=== PATIENT | female | born 1990 | race African-American/Black ===

== ENCOUNTER 2017-01-12 07:46 | Emergency (ER) | payer MEDICAID ==
[~2017-01-12] VITALS: Ht 170.2 cm; Wt 97.5 kg
[~2017-01-12 07:46] MED LIST: ALBUTEROL SULF8.5 GM INH; AMOXICILLIN500 MG ORAL; AZITHROMYCIN250 MG ORAL; CEPHALEXIN500 MG ORAL; CIPROFLOXACIN500 M2 ORAL; COLACE100 MG ORAL; DEPO-PROVE150 MG/11 IM; DOXYCYCLINE MO100 MG ORAL; GUAIFENESIN-CO118 M1 ORAL; HYDROCORTISONE-30 GM TOPIC; HYDROXYZINE HCL50 M1 PO; IBUPROFEN600 M1 PO; IBUPROFEN600 MG ORAL; KEFLEX500 MG ORAL; MEDROL DOSEPAK4 MG ORAL; METRONIDAZOLE500 MG ORAL; NITROFURANTOIN100 M2 ORAL; NKM; NORCO 5-325 TA1 EACH ORAL; ONDANSETRON ODT4 MG ORAL; PHENAZOPYRIDIN100 MG ORAL; PREDNISONE20 MG ORAL; RANITIDINE HCL150 MG ORAL; REGLAN10 MG ORAL; TRIAMCINOLONE A60 ML TP; TYLENOL325 MG ORAL; ZOFRAN ODT4 MG ORAL
[2017-01-12 08:35] VITALS: BP 85/57
[2017-01-12 09:29] LABS: APPEARANCE,URINE SLIGHTLY CLOUDY; KETONES,URINE NEGATIVE (NEGATIVE); LEUKOCYTE ESTERASE ,URINE 2+ (NEGATIVE); NITRITE,URINE NEGATIVE (NEGATIVE); PH,URINE 6 (4.5-8.0); PROTEIN,URINE NEGATIVE (NEGATIVE); UROBILINOGEN,URINE NORMAL MG/DL (0.0-1.0)
[2017-01-12 09:36] LABS: BACTERIA,URINE MODERATE /HPF; RBC,URINE 0 /HPF (0 - 2); SQUAMOUS EPITHELIAL CELL,UR MANY /LPF (NONE/OCC)
[2017-01-12 09:45] VITALS: BP 99/61
[2017-01-12] MEDS ORDERED: NITROFURANTOIN100 M2 ORAL (09:55)
--- NOTE | 2017-01-12 10:04 | Emergency Room Report ---
History of Present Illness General Chief Complaint: Female Urogenital Problems Source: Patient, Medical Record Present Illness HPI 26YOF with 2-3 days dysuria, suprapubc discomfort. Notes IUD placed Jun recurrent symptoms since. Denies abd pain, nausea/vomiting, fever/chills, flank pain. Feels well otherwise. Denies Abd/pelvic surgery in the past, Allergies: Coded Allergies: No Known Allergies (Unverified , 08/07/14) Patient History Past Medical History: none Past Surgical History: none Pertinent Family History: none Social History: Denies: alcohol use, drug use, smoking Last Menstrual Period: 01/05/17 Now: No Immunizations: UTD Reviewed Nursing Documentation: PMH: Agreed, PSxH: Agreed Nursing Documentation-PMH Hx Hypertension: No Hx Pacemaker: No Hx Asthma: Yes Hx COPD: No Hx Diabetes: No Hx Cancer: No Hx Gastrointestinal Problems: No Hx Dialysis: No Hx Cerebrovascular Accident: No Hx Seizures: No Review of Systems All Other Systems: negative except mentioned in HPI Physical Exam Vital Signs Date Time Temp Pulse Resp B/P Pulse Ox O2 Delivery O2 Flow Rate FiO2 01/12/17 08:12 97.9 81 16 85/57 99 Room Air Sp02 EP Interpretation: reviewed, abnormal, other - Low BP likely in error, wrong cuff said. Patient has no signs of sepsis General Appearance: normal inspection, well appearing, no apparent distress, alert, GCS 15, non-toxic Head: normocephalic, atraumatic Eyes: bilateral eye EOMI, bilateral eye PERRL ENT: normal ENT inspection, hearing grossly normal, normal voice Neck: normal inspection, full range of motion, supple, no bony tend Respiratory: normal inspection, lungs clear, normal breath sounds, no respiratory distress, no retraction, no wheezing Cardiovascular #1: regular rate, rhythm, no edema Gastrointestinal: normal inspection, normal bowel sounds, non tender, soft, no guarding, no hernia Genitourinary: no CVA tenderness Musculoskeletal: normal inspection, back normal, normal range of motion, Topher' s Sign negative Neurologic: normal inspection, alert, oriented x3, responsive, cv tech III-XII nml as tested, motor strength/tone normal, speech normal Psychiatric: normal inspection, judgement/insight normal, mood/affect normal Skin: normal inspection, normal color, no rash Medical Decision Making Diagnostic Impression: Primary Impression: Dysuria Additional Impression: UTI (urinary tract infection) Qualified Codes: N30.00 - Acute cystitis without hematuria ER Course Urine preg negative UTOX positive for cocaine, MJ UA grossly infected Rx Macrobid Advised completing Abx and then followup with H[facility] DOCTOR who placed IUD if continued discomfort. Last Vital Signs Date Time Temp Pulse Resp B/P Pulse Ox O2 Delivery O2 Flow Rate FiO2 01/12/17 08:12 97.9 81 16 85/57 99 Room Air Status: improved Disposition: HOME, SELF-CARE Condition: Improved Scripts Nitrofurantoin Monohyd/M-Cryst* (MACROBID 100 MG*) 100 Mg Capsule 100 MG ORAL EVERY 12 HOURS for 7 Days, #14 CAP Prov: GRIS DING M.D. 01/12/17 Patient Instructions: Urinary Tract Infection Additional Instructions: - Take ALL the antibiotics then followup with RECOVERY ANALYST who placed the IUD if you have continued discomfort GRIS DING M.D. Jan 12, 2017 10:04
== END 2017-01-12 09:45 | disposition home or self-care (01) ==
LOC: EMR 08:20
DX: N30.00 Acute cystitis without hematuria (principal); R30.0 Dysuria; F14.90 Cocaine use, unspecified, uncomplicated; F12.90 Cannabis use, unspecified, uncomplicated
CPT/HCPCS: 80300; 81003; 81025; 87086; 99283

== ENCOUNTER 2017-02-18 14:57 | Emergency (ER) | payer MEDICAID ==
[~2017-02-18] VITALS: Ht 167.6 cm; Wt 94.8 kg
[2017-02-18 15:23] VITALS: BP 107/61
[2017-02-18 15:32] LABS: APPEARANCE,URINE CLEAR; KETONES,URINE NEGATIVE (NEGATIVE); LEUKOCYTE ESTERASE ,URINE NEGATIVE (NEGATIVE); NITRITE,URINE NEGATIVE (NEGATIVE); PH,URINE 6.5 (4.5-8.0); PROTEIN,URINE NEGATIVE (NEGATIVE); UROBILINOGEN,URINE NORMAL MG/DL (0.0-1.0)
[2017-02-18] MEDS ORDERED: FLAGYL500 MG ORAL (15:48)
[2017-02-18] MEDS ORDERED: BACITRACIN15 GM TOPIC (15:48)
[2017-02-18 15:57] VITALS: BP 107/61
[2017-02-18] MEDS ORDERED: VENTOLIN HFA18 GM INH (15:57)
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
== END 2017-02-18 15:57 | disposition home or self-care (01) ==
LOC: EMR 15:25
DX: T20.12XA Burn of first degree of lip(s), initial encounter (principal); X08.8XXA Exposure to other specified smoke, fire and flames, initial encounter; Y92.9 Unspecified place or not applicable; N76.0 Acute vaginitis; J45.909 Unspecified asthma, uncomplicated
CPT/HCPCS: 81003; 99284

== ENCOUNTER 2017-05-08 04:07 | Emergency (ER) | payer MEDICAID ==
[~2017-05-08] VITALS: Ht 167.6 cm; Wt 99.8 kg
[~2017-05-08 04:07] MED LIST changes: +BACITRACIN15 GM TOPIC; +FLAGYL500 MG ORAL; +VENTOLIN HFA18 GM INH
[2017-05-08] MEDS ORDERED: Ipratropium 0.02% Inh Soln 2.5ml UD ONE (04:11)
[2017-05-08] MEDS ORDERED: Albuterol ud Inhalation ONE (04:11)
[2017-05-08] MEDS ORDERED: Ipratropium 0.02% Inh Soln 2.5ml UD HHN ONE (04:15)
[2017-05-08] MEDS ORDERED: Albuterol ud Inhalation HHN ONE (04:15)
[2017-05-08 04:21] VITALS: BP 137/78
[2017-05-08] MEDS ORDERED: PREDNISONE20 MG ORAL (04:32)
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
[2017-05-08 04:45] VITALS: BP 137/78
== END 2017-05-08 04:46 | disposition home or self-care (01) ==
LOC: EMR 04:22
DX: J45.901 Unspecified asthma with (acute) exacerbation (principal); J20.8 Acute bronchitis due to other specified organisms; J06.9 Acute upper respiratory infection, unspecified
CPT/HCPCS: 94640; 94664; 99284

== ENCOUNTER 2017-05-17 08:42 | Emergency (ER) | payer MEDICAID ==
[~2017-05-17] VITALS: Ht 167.6 cm; Wt 99.8 kg
--- NOTE | 2017-05-17 08:59 | Emergency Room Report ---
History of Present Illness General Chief Complaint: Flu Like Symptoms Source: Patient Present Illness HPI Patient presents with complaints of continued cough and congestion She reports her symptoms have been ongoing now for about 2 weeks Denies any vomiting or diarrhea she has underlying asthma as well which has complicated her cough Patient has nasal congestion and runny nose Denies any recent travel denies any pleurisy Denies any other chest pain Allergies: Coded Allergies: No Known Allergies (Unverified , 08/07/14) Patient History Past Medical History: see triage record Pertinent Family History: none Last Menstrual Period: 05/11/17 Now: No : 3 Para: 2 Reviewed Nursing Documentation: PMH: Agreed, PSxH: Agreed Nursing Documentation-PMH Past Medical History: No History, Except For Hx Hypertension: No Hx Pacemaker: No Hx Asthma: Yes Hx COPD: No Hx Diabetes: No Hx Cancer: No Hx Gastrointestinal Problems: No Hx Dialysis: No Hx Cerebrovascular Accident: No Hx Seizures: No Review of Systems All Other Systems: negative except mentioned in HPI Physical Exam Vital Signs Date Time Temp Pulse Resp B/P (MAP) Pulse Ox O2 Delivery O2 Flow Rate FiO2 05/17/17 08:46 98.2 91 18 105/72 96 Room Air Sp02 EP Interpretation: reviewed, normal General Appearance: well appearing, no apparent distress Head: normocephalic, atraumatic Eyes: bilateral eye PERRL, bilateral eye EOMI ENT: hearing grossly normal, normal pharynx, TMs + canals normal, uvula midline Neck: full range of motion, supple, no meningismus, no bony tend Respiratory: no respiratory distress, no retraction, no accessory muscle use, wheezing - Bilateral upper and lower lobes Cardiovascular #1: normal peripheral pulses, regular rate, rhythm, no edema, no gallop, no JVD, no murmur Gastrointestinal: normal bowel sounds, non tender, soft, no mass, no organomegaly, non-distended, no guarding, no hernia, no pulsatile mass, no rebound Genitourinary: no CVA tenderness Musculoskeletal: normal inspection Neurologic: oriented x3, responsive, electronic communications technician III-XII nml as tested, motor strength/ tone normal, sensory intact Psychiatric: mood/affect normal Skin: normal color, no rash, warm/dry, palpation normal Lymphatic: normal inspection, no adenopathy Medical Decision Making Diagnostic Impression: Primary Impression: Pneumonia ER Course Given the patient's history and presentation given the duration of symptoms imaging was obtained did not show any obvious pathology Given the duration of symptoms and the patient's presentation however she is diagnosed with clinical pneumonia Likely community-acquired placed on oral antibiotics and requires close outpatient followup Chest X-Ray Diagnostic Results Chest X-Ray Diagnostic Results : Chest X-Ray Ordered: Yes # of Views/Limited/Complete: 1 View Indication: Chest Pain EP Interpretation: Yes Interpretation: no consolidation, no effusion, no pneumothorax Impression: No acute disease Electronically Signed by: Campos Penaloza DO Last Vital Signs Date Time Temp Pulse Resp B/P (MAP) Pulse Ox O2 Delivery O2 Flow Rate FiO2 05/17/17 08:46 98.2 91 18 105/72 96 Room Air Status: improved Disposition: HOME, SELF-CARE Condition: Improved Scripts Guaifenesin/Codeine Phos* (ROBITUSSIN AC*) 118 Ml Liquid 5 ML ORAL Q6H Y for For Cough for 5 Days, #118 ML 0 Refills Prov: CAMPOS PENALOZA D.O. 05/17/17 Prednisone* (PREDNISONE*) 20 Mg Tablet 20 MG ORAL BID, #8 TAB Prov: CAMPOS PENALOZA D.O. 05/17/17 Azithromycin* (ZITHROMAX*) 250 Mg Tablet 250 MG ORAL DAILY, #6 TAB 0 Refills Take two tables once daily for 1 day, then one tablet once daily for 4 days. Prov: CAMPOS PENALOZA D.O. 05/17/17 Additional Instructions: Patient is provided with the discharge instructions notified to follow up with primary doctor in the next 2-3 days otherwise return to the er with any worsening symptoms. Please note that this report is being documented using [email or web address] technology. This can lead to erroneous entry secondary to incorrect interpretation by the dictating instrument. CAMPOS PENALOZA D.O. May 17, 2017 08:59
[2017-05-17] MEDS ORDERED: Ipratropium 0.02% Inh Soln 2.5ml UD HHN ONE (09:00)
[2017-05-17] MEDS ORDERED: Albuterol ud Inhalation HHN ONE (09:00)
[2017-05-17] MEDS ORDERED: PREDNISONE20 MG ORAL (09:43)
[2017-05-17] MEDS ORDERED: GUAIFENESIN-CO118 M1 ORAL (09:43)
[2017-05-17] MEDS ORDERED: ZITHROMAX250 MG ORAL (09:43)
[2017-05-17 10:00] VITALS: BP 110/74
--- NOTE | 2017-05-17 10:00 | Diagnostic Imaging Report ---
Indication: Dyspnea Comparison: 05/29/16 A single view chest radiograph was obtained. Findings: Cardiomediastinal appearance is within normal limits for age. Pulmonary vascularity is appropriate. The diaphragmatic contour is smooth and costophrenic angles are sharp. No pleural effusions are identified. The bones are unremarkable. Impression: No acute findings
== END 2017-05-17 10:00 | disposition home or self-care (01) ==
LOC: EMR 09:19
DX: J18.9 Pneumonia, unspecified organism (principal); J45.909 Unspecified asthma, uncomplicated
CPT/HCPCS: 71010; 94640; 94664; 99283

== ENCOUNTER 2017-06-19 18:39 | Emergency (ER) | payer MEDICAID ==
[~2017-06-19] VITALS: Ht 167.6 cm; Wt 99.8 kg
[~2017-06-19 18:39] MED LIST changes: +ZITHROMAX250 MG ORAL
[2017-06-19 19:13] LABS: APPEARANCE,URINE SLIGHTLY CLOUDY; KETONES,URINE NEGATIVE (NEGATIVE); LEUKOCYTE ESTERASE ,URINE 1+ (NEGATIVE); NITRITE,URINE POSITIVE (NEGATIVE); PH,URINE 5 (4.5-8.0); PROTEIN,URINE NEGATIVE (NEGATIVE); UROBILINOGEN,URINE 1 MG/DL (0.0-1.0)
[2017-06-19 19:22] LABS: BACTERIA,URINE MANY /HPF; RBC,URINE 0-2 /HPF (0 - 2); SQUAMOUS EPITHELIAL CELL,UR MANY /LPF (NONE/OCC)
[2017-06-19] MEDS ORDERED: VENTOLIN HFA18 GM INH (19:35)
[2017-06-19] MEDS ORDERED: PREDNISONE20 MG ORAL (19:35)
[2017-06-19] MEDS ORDERED: Albuterol/Ipratropium 3ml neb HHN ONE (19:45)
[2017-06-19 20:00] VITALS: BP 124/72
[2017-06-19] MEDS ORDERED: COLACE100 MG ORAL (20:11)
[2017-06-19 20:14] VITALS: BP 124/72
--- NOTE | 2017-06-21 14:53 | Emergency Room Report ---
History of Present Illness General Chief Complaint: General Complaint Source: Patient Present Illness HPI Is a 26-year-old female who presented after increased cough and difficulty breathing. Patient gradual onset of symptoms. Patient for several days. She reported recent increased use of her inhaler. She did not have any fever. She reported increased nasal congestion. She denied any chest pain. Allergies: Coded Allergies: No Known Allergies (Unverified , 08/07/14) Patient History Past Medical History: see triage record, asthma Last Menstrual Period: last month Now: No Reviewed Nursing Documentation: PMH: Agreed, PSxH: Agreed Nursing Documentation-PMH Past Medical History: No History, Except For Hx Hypertension: No Hx Pacemaker: No Hx Asthma: Yes Hx COPD: No Hx Diabetes: No Hx Cancer: No Hx Gastrointestinal Problems: No Hx Dialysis: No Hx Cerebrovascular Accident: No Hx Seizures: No Review of Systems All Other Systems: negative except mentioned in HPI Physical Exam Vital Signs Date Time Temp Pulse Resp B/P (MAP) Pulse Ox O2 Delivery O2 Flow Rate FiO2 06/19/17 18:41 97.9 99 18 120/76 99 Room Air Sp02 EP Interpretation: reviewed, normal General Appearance: normal inspection, well appearing, no apparent distress, alert, GCS 15 Head: atraumatic ENT: normal ENT inspection, hearing grossly normal, normal voice Neck: normal inspection, full range of motion, supple, no bony tend Respiratory: normal inspection, normal breath sounds, no retraction, wheezing Cardiovascular #1: regular rate, rhythm, no edema Gastrointestinal: normal inspection, normal bowel sounds, non tender, soft, no guarding, no hernia Genitourinary: no CVA tenderness Musculoskeletal: normal inspection, back normal, normal range of motion Neurologic: normal inspection, alert, oriented x3, responsive, grinder brake lining III-XII nml as tested, speech normal Psychiatric: normal inspection, judgement/insight normal, mood/affect normal Skin: normal inspection, normal color, no rash Medical Decision Making Diagnostic Impression: Primary Impression: Asthma ER Course The patient presented for cough and difficulty breathing. Difficult differential diagnosis included bronchitis, pneumonia, asthma, foreign body, pertussis among others. The patient was given breathing treatment with with improvement in respiratory status. Patient given oral prednisone. A repeat exam showed diminished wheezing. Patient was advised followup with primary care physician for reevaluation one to 2 days. Patient was to return for increased productive cough, hemoptysis, increased difficulty breathing or other concerns Last Vital Signs Date Time Temp Pulse Resp B/P (MAP) Pulse Ox O2 Delivery O2 Flow Rate FiO2 06/19/17 20:14 97.9 84 17 124/72 100 Room Air Status: improved Disposition: HOME, SELF-CARE Condition: Improved Scripts Docusate Sodium* (COLACE*) 100 Mg Capsule 100 MG ORAL THREE TIMES A DAY, #30 CAP Prov: Dionte Lora 06/19/17 Prednisone* (PREDNISONE*) 20 Mg Tablet 40 MG ORAL DAILY, #10 TAB Prov: Dionte Lora 06/19/17 Albuterol Sulfate (VENTOLIN HFA) 18 Gm Hfa.aer.ad 2 PUFFS INH EVERY 6 HOURS, #18 GM 0 Refills Prov: Dionte Lora 06/19/17 Referrals: [facility],REFERRING (PCP) Patient Instructions: Asthma, Adult Dionte Lora Jun 21, 2017 14:53
== END 2017-06-19 20:14 | disposition home or self-care (01) ==
LOC: EMR 19:18
DX: J45.909 Unspecified asthma, uncomplicated (principal)
CPT/HCPCS: 81003; 81025; 87086; 87181; 99283

== ENCOUNTER 2019-10-05 10:23 | Emergency (ER) | payer MEDICAID ==
[~2019-10-05] VITALS: Ht 167.6 cm; Wt 126.1 kg
--- NOTE | 2019-10-05 10:37 | NUR ---
ED Nurse Note: Pt walked into ED w/ c/o cough, sneezing, sore throat, nausea for 3 days. Pt has hx of asthma. Pt denies vomiting. Pt lungs has expiratory wheezing bilaterally. Pt is alert and orientedx4, ambulatory. MD has seen patient. t has pain 7/10 throat.
[2019-10-05 10:41] VITALS: BP 104/76
[2019-10-05] MEDS ORDERED: Albuterol/Ipratropium 3ml neb HHN ONE ×2 (10:45→11:15)
[2019-10-05] MEDS ORDERED: PREDNISONE20 MG ORAL (10:47)
[2019-10-05] MEDS ORDERED: ALBUTEROL SULF8.5 GM INH (10:49)
[2019-10-05] MEDS ORDERED: AMOXICILLIN500 MG ORAL (10:49)
--- NOTE | 2019-10-05 10:54 | Emergency Room Report ---
History of Present Illness General Chief Complaint: Flu Like Symptoms Source: Patient Present Illness HPI Disclaimer: Please note that this report is being documented using 4th aspectON technology. This can lead to erroneous entry secondary to incorrect interpretation by the dictating instrument. HPI: 28-year-old female presents for evaluation of sore throat, cough. Symptoms present 2 to 3 days. Started with sore throat and worsening nonproductive cough over the past 3 days. Reports subjective fevers and chills. Reports fatigue and decreased appetite. Denies nausea or vomiting. Denies diarrhea or abdominal pain or cramping. Denies dysuria hematuria. She does report some nasal congestion and rhinorrhea. Did not receive a flu shot this year. Has been using Tamiflu and DayQuil. Use the rescue inhaler but does not use steroid inhalers. No recent asthma exacerbations. Does not have a PMD at this time. PMH: Asthma PSH: Denies Allergies: Denies Allergies: Coded Allergies: No Known Allergies (Unverified , 08/07/14) Patient History Last Menstrual Period: irregular Now: No Nursing Documentation-PMH Past Medical History: No History, Except For Hx Hypertension: No Hx Pacemaker: No Hx Asthma: Yes Hx COPD: No Hx Diabetes: No Hx Cancer: No Hx Gastrointestinal Problems: No Hx Dialysis: No Hx Cerebrovascular Accident: No Hx Seizures: No Review of Systems All Other Systems: negative except mentioned in HPI Physical Exam Vital Signs Date Time Temp Pulse Resp B/P (MAP) Pulse Ox O2 Delivery O2 Flow Rate FiO2 10/05/19 10:29 98.1 87 17 101/73 (82) 94 Room Air 10/05/19 10:41 96 General: Awake and alert, no acute distress HEENT: NC/AT. EOMI. uvula is midline. Pharynx is erythematous with some mild exudates. Tonsils are 3+ but not obstructing. They are edematous and erythematous with overlying exudate as well. Airway is patent. Neck: Supple, trachea midline. Tender bilateral anterior lymphadenopathy Cardiovascular: RRR. S1 and S2 normal. No murmur appreciated Resp: Normal work of breathing. Intermittent nonproductive cough throughout the exam. Expiratory wheezes heard at the bases bilaterally. No crackles appreciated. Abdomen: Abdomen is soft, nondistended. Nontender Skin: Intact. No abrasions, laceration or rash over the exposed skin MSK: Normal tone and bulk. Moving all extremities. No obvious deformity. Neuro: Awake and alert. Mentating appropriately. Medical Decision Making Diagnostic Impression: Primary Impression: Asthma exacerbation Additional Impressions: URI (upper respiratory infection) Bronchitis Pharyngitis ER Course This a 28-year-old female presenting for the evaluation of 3 days URI symptoms as well as nonproductive cough and wheezing. Differential includes was not limited to viral syndrome, influenza, pneumonia, bronchitis, eczema exacerbation , pharyngitis, tonsillitis, sinusitis to name a few. Overall, she is well- appearing and afebrile though she does have some tonsillar and pharyngeal edema and exudate. She also has a more viral-like appearance. Likely this is a viral syndrome exacerbating her asthma. She will require some breathing treatments and will start prednisone for 5 days. Additionally, we will likely start antibiotics for bronchitis given her risk factors and poor follow-up. Chest X-Ray Diagnostic Results Chest X-Ray Diagnostic Results : Chest X-Ray Ordered: Yes # of Views/Limited/Complete: 1 View Indication: Shortness of Breath EP Interpretation: Yes Interpretation: no consolidation, no effusion, no pneumothorax, no acute cardiopulmonary disease Impression: No acute disease Electronically Signed by: Electronically signed by Dr. Wei Bustos Reevaluation Time: 11:45 Last Vital Signs Date Time Temp Pulse Resp B/P (MAP) Pulse Ox O2 Delivery O2 Flow Rate FiO2 10/05/19 10:41 84 19 Room Air 96 10/05/19 10:41 98.1 104/76 96 Reevaluation Impression No obvious infiltrate or other findings on chest x-ray. Improved after breathing treatments. The patient be discharged with steroids, antibiotics and cough medication. Follow-up on an outpatient basis. Discussed reasons to return to the emergency department. She understands and agrees with this treatment plan. Disposition: HOME, SELF-CARE Condition: Stable Scripts Guaifenesin/Codeine Phos* (ROBITUSSIN AC*) 118 Ml Liquid 5 ML ORAL Q6H PRN for For Cough for 5 Days, #118 ML 0 Refills Prov: Wei Bustos MD 10/05/19 Amoxicillin* (AMOXIL*) 500 Mg Capsule 500 MG ORAL BID for 7 Days, #14 CAP Prov: Wei Bustos MD 10/05/19 Albuterol Sulfate* (ALBUTEROL SULFATE MDI*) 8.5 Gm Hfa.aer.ad 2 PUFF INH Q3H, #1 INH 0 Refills Prov: Wei Bustos MD 10/05/19 Prednisone* (PREDNISONE*) 20 Mg Tablet 40 MG ORAL DAILY, #10 TAB Prov: Wei Bustos MD 10/05/19 Referrals: [facility] Patient Instructions: Acute Bronchitis Additional Instructions: You will be started antibiotics for treatment of the bronchitis and possible pharyngitis. We will also start prednisone for 5 days to treat an asthma exacerbation likely from this recent illness. Please contact 1 of the clinics listed here to establish yourself as a new patient if more regular follow-up given your asthma. Follow-up within the next week for reevaluation of your current symptoms. Return to the emergency department any new or worsening symptoms. Wei Bustos MD Oct 05, 2019 10:54
[2019-10-05] MEDS ORDERED: GUAIFENESIN-CO118 M1 ORAL (11:06)
--- NOTE | 2019-10-05 11:56 | NUR ---
ER DISCHARGE NOTE: Patient is cleared to be discharged per ERMD, pt is aox4, on room air, with stable vital signs. pt was given dc and prescription instructions, pt was able to verbalize understanding, pt id band removed. pt is able to ambulate with steady gait. pt took all belongings.
--- NOTE | 2019-10-05 11:56 | Diagnostic Imaging Report ---
Indication: Cough Technique: One view of the chest Comparison: 05/17/2017 Findings: Suboptimal inspiration. Lungs and pleural spaces are clear. The heart size is upper limits of normal Impression: No acute process
[2019-10-05 11:57] VITALS: BP 104/76
== END 2019-10-05 11:58 | disposition home or self-care (01) ==
LOC: EMR 10:47
DX: J45.901 Unspecified asthma with (acute) exacerbation (principal); J20.9 Acute bronchitis, unspecified; J02.9 Acute pharyngitis, unspecified; J06.9 Acute upper respiratory infection, unspecified
CPT/HCPCS: 71045; Z7502; 99284; J7620

== ENCOUNTER 2019-10-08 17:59 | Inpatient (IN) | payer MEDICAID ==
[~2019-10-08] VITALS: Ht 167.6 cm; Wt 103.4 kg
--- NOTE | 2019-10-08 18:15 | NUR ---
ED Nurse Note: Pt from home walked in due to flu like symptoms of fever, bodyaches, coughing, sore throat, decreased urine output and lower back pain x 1 week. Pt was seen by doctor 3 days ago. Temp in triage 102 F and pt took ibuprofen before going to ED. AAO x4, ambulatory with non labored breathing.
[2019-10-08 18:30] VITALS: BP 99/58
[2019-10-08] MEDS ORDERED: Acetaminophen 500mg (ES) tab ORAL ONE ×2 (18:30→19:03)
--- NOTE | 2019-10-08 18:57 | NUR ---
ED Nurse Note: Collected blood/urine and flu swab sent.
[2019-10-08] MEDS ORDERED: Sodium Chloride 3,100 ML IVLG ONE (19:00)
[2019-10-08] MEDS ORDERED: Albuterol ud Inhalation HHN ONE (19:00)
[2019-10-08 19:12] LABS: APPEARANCE,URINE SLIGHTLY CLOUDY; BILIRUBIN, URINE NEGATIVE (NEGATIVE); COLOR,URINE AMBER; GLUCOSE, URINE (UA) NEGATIVE (NEGATIVE); KETONES,URINE 3+ (NEGATIVE); LEUKOCYTE ESTERASE ,URINE 3+ (NEGATIVE); NITRITE,URINE NEGATIVE (NEGATIVE); PH,URINE 5 (4.5-8.0); PROTEIN,URINE 1+ (NEGATIVE); UROBILINOGEN,URINE 1 MG/DL (0.0-1.0)
[2019-10-08] MEDS ORDERED: Albuterol ud Inhalation ONE (19:18)
[2019-10-08 19:21] LABS: BASOPHILS % (AUTO) 1.6 % (0.0-2.0); EOSINOPHILS % (AUTO) 0.1 % (0.0-3.0); HEMATOCRIT 40.7 % (37.0-47.0); HEMOGLOBIN 13.3 G/DL (12.0-16.0); MEAN CORPUSCULAR VOLUME 83 FL (80-99); MONOCYTES % (AUTO) 8.4 % (1.0-10.0); NEUTROPHILS % (AUTO) 68.9 % (45.0-75.0); PLATELET COUNT 234 K/UL (150-450); RED BLOOD COUNT 4.91 M/UL (4.20-5.40); RED CELL DISTRIBUTION WIDTH 14.2 % (11.6-14.8); WHITE BLOOD COUNT 6.6 K/UL (4.8-10.8)
--- NOTE | 2019-10-08 19:26 | NUR ---
HAND-OFF: Report given to deisy MONROY.
[2019-10-08] MEDS ORDERED: Gadavist 7.5mMol/7.5ml vial IV PRN (19:30)
[2019-10-08 19:40] LABS: ANION GAP 13 mmol/L (5-15); BLOOD UREA NITROGEN 13 mg/dL (7-18); CALCIUM 9.3 MG/DL (8.5-10.1); CARBON DIOXIDE 25 MMOL/L (21-32); CHLORIDE 102 MMOL/L (98-107); CREATININE 1.2 MG/DL (0.55-1.30); POTASSIUM 4.1 MMOL/L (3.5-5.1); SODIUM 140 MMOL/L (136-145)
[2019-10-08 19:46] LABS: ALANINE AMINOTRANSFERASE 19 U/L (12-78); ALBUMIN 3.7 G/DL (3.4-5.0); ALBUMIN/GLOBULIN RATIO 0.7 (1.0-2.7); ALKALINE PHOSPHATASE 99 U/L (46-116); ASPARTATE AMINO TRANSFERASE 16 U/L (15-37); BILIRUBIN,TOTAL 0.5 MG/DL (0.2-1.0)
--- NOTE | 2019-10-08 19:50 | NUR ---
ED Nurse Note: sujata went with radiology administrator for MRI. Will monitor for return.
--- NOTE | 2019-10-08 20:50 | NUR ---
ED Nurse Note: Patient awake and relaxed with at bedside. Patient tolerating fluids and medication well. Will continue to monitor.
--- NOTE | 2019-10-08 21:54 | NUR ---
ED Nurse Note: Ptient belongings sheet completed, $20.00 and 3- visas noted and signed for.
--- NOTE | 2019-10-08 22:05 | NUR ---
ED Nurse Note: Report called in to Sonia MONROY.
[2019-10-08 22:20] VITALS: BP 99/58
--- NOTE | 2019-10-08 22:20 | NUR ---
ED Nurse Note: Patient transported to floor without incident. Addendum: 10/09/19 at 0023 by TONY ED Nurse Note: Nakia georges verfied upon arrival to floor.
--- NOTE | 2019-10-08 22:29 | Emergency Room Report ---
History of Present Illness General Chief Complaint: General Complaint Source: Patient Present Illness HPI This patient states that for the past 5 days that she has had sore throat, body aches and painful swallowing. She is also had a cough and some shortness of breath. She does have a history of asthma. She states that she noted that her tonsils were swollen and white. She complains of low back pain. She denies abdominal pain. She denies dysuria or hematuria. She denies travel out of the country. She has no other complaints. Allergies: Coded Allergies: No Known Allergies (Unverified , 08/07/14) Patient History Past Medical History: see triage record, asthma, other - Hyperthyroid Social History: Denies: smoking, alcohol use, drug use Last Menstrual Period: Aug, 2019 Now: No Reviewed Nursing Documentation: PMH: Agreed; PSxH: Agreed Nursing Documentation-PMH Past Medical History: No History, Except For Hx Hypertension: No Hx Pacemaker: No Hx Asthma: Yes Hx COPD: No Hx Diabetes: No Hx Cancer: No Hx Gastrointestinal Problems: No Hx Dialysis: No Hx Cerebrovascular Accident: No Hx Seizures: No Review of Systems All Other Systems: negative except mentioned in HPI Physical Exam Vital Signs Date Time Temp Pulse Resp B/P (MAP) Pulse Ox O2 Delivery O2 Flow Rate FiO2 10/08/19 18:05 102.0 111 19 116/70 (85) 96 Room Air 10/08/19 19:24 21 Sp02 EP Interpretation: reviewed, normal General Appearance: no apparent distress, alert, GCS 15, non-toxic Head: normocephalic, atraumatic Eyes: bilateral eye normal inspection, bilateral eye PERRL ENT: hearing grossly normal, no angioedema, normal voice, uvula midline, moist mucus membranes, tonsillar swelling, tonsillar exudate Neck: full range of motion, supple/symm/no masses Respiratory: chest non-tender, speaking full sentences, wheezing, expiration Cardiovascular #1: no edema, tachycardia Gastrointestinal: normal bowel sounds, non tender, soft, non-distended, no guarding, no rebound Rectal: deferred Musculoskeletal: back normal, normal range of motion, non-tender Neurologic: alert, motor strength/tone normal, oriented x3, sensory intact, responsive, speech normal Psychiatric: judgement/insight normal, memory normal, mood/affect normal, no suicidal/homicidal ideation Skin: no rash, normal color Medical Decision Making Diagnostic Impression: Primary Impression: Asthma exacerbation Additional Impressions: Strep tonsillitis Fever Wheezing UTI (urinary tract infection) ER Course This patient has an asthma exacerbation. She also has findings on exam consistent with streptococcal tonsillitis. She is a fever of 102 and a urinary tract infection. The patient appears miserable and is having difficulty tolerating fluids or anything orally. She was given IV fluids, IV antibiotics and breathing treatments and will be admitted for further pulmonary hygiene, hydration and further monitoring and treatment. I had planned on obtaining an MRI of the lumbar spine because this patient complained of low back pain and some numbness in her right thigh. However, the patient did go to MRI and was unable to tolerate it. She adamantly declined MRI. I offered the patient sedation for the MRI and she adamantly refused. Laboratory Tests Test 10/08/19 18:40 White Blood Count 6.6 K/UL (4.8-10.8) Red Blood Count 4.91 M/UL (4.20-5.40) Hemoglobin 13.3 G/DL (12.0-16.0) Hematocrit 40.7 % (37.0-47.0) Mean Corpuscular Volume 83 FL (80-99) Mean Corpuscular Hemoglobin 27.1 PG (27.0-31.0) Mean Corpuscular Hemoglobin Concent 32.7 G/DL (32.0-36.0) Red Cell Distribution Width 14.2 % (11.6-14.8) Platelet Count 234 K/UL (150-450) Mean Platelet Volume 9.4 FL (6.5-10.1) Neutrophils (%) (Auto) 68.9 % (45.0-75.0) Lymphocytes (%) (Auto) 21.0 % (20.0-45.0) Monocytes (%) (Auto) 8.4 % (1.0-10.0) Eosinophils (%) (Auto) 0.1 % (0.0-3.0) Basophils (%) (Auto) 1.6 % (0.0-2.0) Urine Color [place] Urine Appearance Slightly cloudy Urine pH 5 (4.5-8.0) Urine Specific [place] 1.020 (1.005-1.035) Urine Protein 1+ (NEGATIVE) H Urine Glucose (UA) Negative (NEGATIVE) Urine Ketones 3+ (NEGATIVE) H Urine Blood 2+ (NEGATIVE) H Urine Nitrite Negative (NEGATIVE) Urine Bilirubin Negative (NEGATIVE) Urine Ictotest Negative (NEGATIVE) Urine Urobilinogen 1 MG/DL (0.0-1.0) H Urine Leukocyte Esterase 3+ (NEGATIVE) H Urine RBC 2-4 /HPF (0 - 2) H Urine WBC 15-20 /HPF (0 - 2) H Urine Squamous Epithelial Cells Many /LPF (NONE/OCC) H Urine Bacteria Moderate /HPF (NONE) H Urine HCG, Qualitative Negative (NEGATIVE) Sodium Level 140 MMOL/L (136-145) Potassium Level 4.1 MMOL/L (3.5-5.1) Chloride Level 102 MMOL/L (98-107) Carbon Dioxide Level 25 MMOL/L (21-32) Anion Gap 13 mmol/L (5-15) Blood Urea Nitrogen 13 mg/dL (7-18) Creatinine 1.2 MG/DL (0.55-1.30) Estimate Glomerular Filtration Rate > 60 mL/min (>60) Glucose Level 98 MG/DL (74-106) Lactic Acid Level 0.90 mmol/L (0.4-2.0) Calcium Level 9.3 MG/DL (8.5-10.1) Total Bilirubin 0.5 MG/DL (0.2-1.0) Aspartate Amino Transferase (AST) 16 U/L (15-37) Alanine Aminotransferase (ALT) 19 U/L (12-78) Alkaline Phosphatase 99 U/L (46-116) Total Protein 8.8 G/DL (6.4-8.2) H Albumin 3.7 G/DL (3.4-5.0) Globulin 5.1 g/dL Albumin/Globulin Ratio 0.7 (1.0-2.7) L Thyroid Stimulating Hormone (TSH) 0.190 uiU/mL (0.358-3.740) Free Thyroxine 1.75 NG/DL (0.76-1.46) H Microbiology Date/Time Source Procedure Growth Status 10/08/19 18:40 Nasal Nares - Final Complete 10/08/19 18:40 Nasal Nares - Final Complete EKG Diagnostic Results Rate: tachycardiac Rhythm: other - S.tachycardia ST Segments: no acute changes Rhythm Strip Diag. Results EP Interpretation: yes Rate: 100's Rhythm: no PVC's, no ectopy, other - S.tachycardia Last Vital Signs Date Time Temp Pulse Resp B/P (MAP) Pulse Ox O2 Delivery O2 Flow Rate FiO2 10/08/19 19:55 103.1 10/08/19 19:24 104 21 100 Room Air 21 100 18 100 10/08/19 18:30 99/58 Disposition: ADMITTED INPATIENT Condition: Serious Referrals: NOT CHOSEN [facility]/,REFERRING (PCP) Jena Hernandez DO Oct 08, 2019 22:29
--- NOTE | 2019-10-08 22:35 | NUR ---
NURSE NOTES: Patient arrived to the unit @2230 via gurney accompanied by the ED RN and the avionics test technician. Patient is alert, awake, and responsive. Breathing regular and unlabored with no s/s of SOB noted at this time. Patient remains on RA with saturation of 98%, vitals within normal limits, afebrile. Patient is c/o some lower back and sore throat pain. IV access on the LAC, 20G, patent, intact, and running fluids from ED at this time. Placed patient on a manager cardiac cath, showing sinus rhythm. Reviewed belongings list with the patient and the transferring RN. Noted patient has few credit cards and $20 in [place]. Belongings remained with patient. Patient's is at bedside and will stay the night. Oriented patient to room, patient is able to make needs known. Patient is able to ambulate without assist, steady gait. Bed remains in lowest position, breaks engaged, and call light is within reach at all times. Contacted primary MD for admitting orders, awaiting response. All other needs attended to, patient remains stable, will continue to monitor.
--- NOTE | 2019-10-08 23:40 | NUR ---
NURSE NOTES: Noted patient screaming out of no where, two RN's attended to patient's room and noted patient crying and screaming. Patient's had left and it appeared that she was very upset. Patient stated "Unplug me right now, right now." Patient was very eager to leave. Explained to the patient the risks and benefits of her decision, but patient was persistent on leaving. Informed the CN Feli about the patient's decision. The CN spoke to the patient as well and explained all the risks and benefits, but patient still refused. Patient agreed to sign AMA. Removed patient's IV, removed the lunchroom monitor. All belongings taken taken with the patient. Escorted patient down, patient left at 2340. Informed primary MD.
--- NOTE | 2019-10-12 07:31 | Discharge Summary ---
Discharge Summary Discharge Summary _ DATE OF ADMISSION: 10/08/2019 DATE OF DISCHARGE: 10/08/2019 Patient left AGAINST MEDICAL ADVICE REASON FOR ADMISSION: 28 years old female with past medical history of asthma ,presented to emergency department complaining of sore throat , body aches and painful swallowing. Patient reported cough and mild shortness of breath. She also complained of low back pain. No abdominal pain. No dysuria or hematuria. She denied traveling outside of the country. Symptoms started about 5 days ago. Upon evaluation patient was febrile with temperature 102, tachycardic with heart rate 111. Pulse oximetry was stable on room air. Laboratory work-up revealed no leukocytosis, stable hemoglobin, hematocrit and platelet count. Stable electrolytes and renal parameters. Lactic acid 0.9. Urinalysis revealed evidence of probable urinary tract infection with pyuria, moderate bacteria, +3 leukocyte esterase. Urine test was negative. Influenza test was negative. Clinical examination revealed swollen tonsils with tonsillar exudate. In emergency department patient started on the IV fluids, empiric antibiotics and nebulizing treatment with bronchodilator. Patient admitted for further IV hydration antibiotic and supportive care. HOSPITAL COURSE: Patient admitted to the floor . Pulse oximetry was stable on room air. Nebulizing treatment with bronchodilator provided as needed. Telemetry showed sinus rhythm. Patient started on IV fluids. Shortly after arriving to the floor patient decided to leave AGAINST MEDICAL ADVICE. The risks and consequences of signing AGAINST MEDICAL ADVICE were discussed with patient in detail. Patient verbalized understanding, nevertheless signed AMA form and left. At the time of this dictation blood culture results back and negative up to date. and urine culture revealed staph coagulase negative with colony count less than 10K. FINAL DIAGNOSES: Fever Possible streptococcal tonsillitis Possible UTI Asthma with possible exacerbation I have been assigned to dictate discharge summary for this account. I was not involved in the patient's management. Tiffanie Valencia NP Oct 12, 2019 07:31
== END 2019-10-08 23:45 | disposition left against medical advice (07) | DRG 141 ==
LOC: EMR 18:25 → 2E 19:40 → EDBEDREQ 21:10
DX: J45.901 Unspecified asthma with (acute) exacerbation (principal); J03.00 Acute streptococcal tonsillitis, unspecified; N39.0 Urinary tract infection, site not specified
CPT/HCPCS: 36415; 80053; 81003; 81025; 83605; 84439; 84443; 85025; 86710; 87040; 87086; 93005; 96360; 99285; J7030

== ENCOUNTER → 2020-02-29 | Emergency (ER) | payer MEDICAID, OTHER ==
[~2020-02-29] VITALS: Ht 167.6 cm; Wt 111.1 kg
[~2020-02-29] MED LIST changes: +CEPHALEXIN500 M1 ORAL; +FAMOTIDINE20 MG ORAL; +ONDANSETRON ODT4 MG BC
[2020-02-29 01:30] VITALS: BP 102/71
[2020-02-29 01:51] LABS: EOSINOPHILS % (AUTO) 1.2 % (0.0-3.0); HEMATOCRIT 44.9 % (37.0-47.0); HEMOGLOBIN 14.7 G/DL (12.0-16.0); LYMPHOCYTES % (AUTO) 38.1 % (20.0-45.0); MEAN CORPUSCULAR VOLUME 88 FL (80-99); MONOCYTES % (AUTO) 7.3 % (1.0-10.0); NEUTROPHILS % (AUTO) 51.4 % (45.0-75.0); PLATELET COUNT 299 K/UL (150-450); RED BLOOD COUNT 5.09 M/UL (4.20-5.40); RED CELL DISTRIBUTION WIDTH 13.2 % (11.6-14.8); WHITE BLOOD COUNT 7.2 K/UL (4.8-10.8)
[2020-02-29 01:55] LABS: ANION GAP 9 mmol/L (5-15); BLOOD UREA NITROGEN 10 mg/dL (7-18); CARBON DIOXIDE 28 MMOL/L (21-32); CHLORIDE 103 MMOL/L (98-107); POTASSIUM 3.6 MMOL/L (3.5-5.1); SODIUM 140 MMOL/L (136-145)
[2020-02-29 02:00] LABS: ALANINE AMINOTRANSFERASE 18 U/L (12-78); ALBUMIN 3.9 G/DL (3.4-5.0); ALBUMIN/GLOBULIN RATIO 0.8 (1.0-2.7); ALKALINE PHOSPHATASE 112 U/L (46-116); ASPARTATE AMINO TRANSFERASE 17 U/L (15-37); BILIRUBIN,TOTAL 0.2 MG/DL (0.2-1.0)
[2020-02-29 02:44] VITALS: BP 124/78
--- NOTE | 2020-02-29 03:04 | Emergency Room Report ---
History of Present Illness General Chief Complaint: Vomiting Source: Patient Present Illness HPI 29-year-old female presents ED with abdominal pain and vomiting. Started a few hours ago. States that she was drinking beer and some hard alcohol after which the vomiting started. Noticed blood in her vomit. Pain is epigastric, burning , 8 out of 10, nonradiating. Denies chest pain or shortness of breath. Denies fevers or chills. Denies diarrhea. Does admit to marijuana use. No other aggravating relieving factors. Denies any other associated symptoms Allergies: Coded Allergies: No Known Allergies (Unverified , 08/07/14) COVID-19 Screening Contact w/high risk pt: No Experienced COVID-19 symptoms?: No COVID-19 Testing performed REGISTERED NURSE BEHAVIORAL HEALTH: No Patient History Past Medical History: DM, asthma Past Surgical History: none Pertinent Family History: none Social History: Denies: smoking, alcohol use, drug use Last Menstrual Period: current Now: No Immunizations: UTD Reviewed Nursing Documentation: PMH: Agreed; PSxH: Agreed Nursing Documentation-PMH Hx Hypertension: No Hx Pacemaker: No Hx Asthma: Yes Hx COPD: No Hx Diabetes: Yes Hx Cancer: No Hx Gastrointestinal Problems: No - gerd Hx Dialysis: No Hx Cerebrovascular Accident: No Hx Seizures: No Review of Systems All Other Systems: negative except mentioned in HPI Physical Exam Vital Signs Date Time Temp Pulse Resp B/P (MAP) Pulse Ox O2 Delivery O2 Flow Rate FiO2 02/29/20 01:16 98.2 97 16 102/71 (81) 97 Room Air Sp02 EP Interpretation: reviewed, normal General Appearance: no apparent distress, alert, GCS 15, non-toxic Head: normocephalic, atraumatic Eyes: bilateral eye normal inspection, bilateral eye PERRL ENT: hearing grossly normal, normal pharynx, no angioedema, normal voice Neck: full range of motion, supple/symm/no masses Respiratory: chest non-tender, lungs clear, normal breath sounds, speaking full sentences Cardiovascular #1: regular rate, rhythm, no edema Cardiovascular #2: 2+ carotid (R), 2+ carotid (L), 2+ radial (R), 2+ radial (L) , 2+ dorsalis pedis (R), 2+ dorsalis pedis (L) Gastrointestinal: normal bowel sounds, soft, non-distended, no guarding, no rebound, tenderness Rectal: deferred Genitourinary: normal inspection, no CVA tenderness Musculoskeletal: back normal, normal range of motion, gait/station normal, non- tender Neurologic: alert, motor strength/tone normal, oriented x3, sensory intact, responsive, speech normal Psychiatric: judgement/insight normal, memory normal, mood/affect normal, no suicidal/homicidal ideation Reflexes: 3+ bicep (R), 3+ bicep (L), 3+ tricep (R), 3+ tricep (L), 3+ knee (R) , 3+ knee (L) Lymphatic: no adenopathy Medical Decision Making Diagnostic Impression: Primary Impression: Gastritis Qualified Codes: K29.21 - Alcoholic gastritis with bleeding ER Course Hospital Course 29 yo F presents c/o abdominal pain with vomiting differential diagnosis: gastritis, SBO, cholecystits Clinical course Patient placed on stretcher. On child monitor. After initial history and physical I ordered labs, IV fluids, Zofran and pepcid Labs - no leukocytosis, no electrolyte abnormalities, LFTs normal, Upon reassessment, patient states she feels better. Discussed findings with patient. Safe for discharge and close outpatient follow-up. I feel this is a highly complex case requiring extensive working including EKG/ Rhythm strip, Xray/CT/US, Blood/urine lab work, repeat exams while in ED, and administration of strong opiates/narcotics for pain control, admission to hospital or close patient follow up. Diagnosis - gastritis Stable and discharged to home with prescriptions for pepcid and zofran. Followup with PMD. Return to ED if symptoms recur or worsen Laboratory Tests Test 02/29/20 01:40 White Blood Count 7.2 K/UL (4.8-10.8) Red Blood Count 5.09 M/UL (4.20-5.40) Hemoglobin 14.7 G/DL (12.0-16.0) Hematocrit 44.9 % (37.0-47.0) Mean Corpuscular Volume 88 FL (80-99) Mean Corpuscular Hemoglobin 28.8 PG (27.0-31.0) Mean Corpuscular Hemoglobin Concent 32.6 G/DL (32.0-36.0) Red Cell Distribution Width 13.2 % (11.6-14.8) Platelet Count 299 K/UL (150-450) Mean Platelet Volume 8.0 FL (6.5-10.1) Neutrophils (%) (Auto) 51.4 % (45.0-75.0) Lymphocytes (%) (Auto) 38.1 % (20.0-45.0) Monocytes (%) (Auto) 7.3 % (1.0-10.0) Eosinophils (%) (Auto) 1.2 % (0.0-3.0) Basophils (%) (Auto) 2.0 % (0.0-2.0) Sodium Level 140 MMOL/L (136-145) Potassium Level 3.6 MMOL/L (3.5-5.1) Chloride Level 103 MMOL/L (98-107) Carbon Dioxide Level 28 MMOL/L (21-32) Anion Gap 9 mmol/L (5-15) Blood Urea Nitrogen 10 mg/dL (7-18) Creatinine 1.0 MG/DL (0.55-1.30) Estimat Glomerular Filtration Rate > 60 mL/min (>60) Glucose Level 114 MG/DL (74-106) H Calcium Level 9.0 MG/DL (8.5-10.1) Total Bilirubin 0.2 MG/DL (0.2-1.0) Aspartate Amino Transf (AST/SGOT) 17 U/L (15-37) Alanine Aminotransferase (ALT/SGPT) 18 U/L (12-78) Alkaline Phosphatase 112 U/L (46-116) Total Protein 8.5 G/DL (6.4-8.2) H Albumin 3.9 G/DL (3.4-5.0) Globulin 4.6 g/dL Albumin/Globulin Ratio 0.8 (1.0-2.7) L Lipase 139 U/L (73-393) Last Vital Signs Date Time Temp Pulse Resp B/P (MAP) Pulse Ox O2 Delivery O2 Flow Rate FiO2 02/29/20 02:44 99.0 82 18 124/78 98 Room Air Status: improved Disposition: HOME, SELF-CARE Condition: Stable Scripts Ondansetron Odt* (ZOFRAN ODT*) 4 Mg Tab.rapdis 4 MG BC EVERY 6 HOURS PRN for Nausea & Vomiting, #20 TAB 0 Refills Prov: Maurice Porter MD 02/29/20 Famotidine* (Pepcid 20mg tablet*) 20 Mg Tablet 20 MG ORAL DAILY, #30 TAB 0 Refills Prov: Maurice Porter MD 02/29/20 Referrals: [facility]ERR[facility] (PCP) Patient Instructions: Gastritis, Adult, [id number] Maurice Potrer MD Feb 29, 2020 03:04
== END | disposition home or self-care (01) ==
LOC: EMR 01:31
DX: K29.21 Alcoholic gastritis with bleeding (principal); K21.9 Gastro-esophageal reflux disease without esophagitis; E11.9 Type 2 diabetes mellitus without complications
CPT/HCPCS: 36415; 80053; 83690; 85025; 96361; 96374; 96375; J2405; J7030; S0028; Z7502; 99284

== ENCOUNTER 2020-03-01 05:12 | Emergency (ER) | payer OTHER ==
[~2020-03-01] VITALS: Ht 170.2 cm; Wt 111.6 kg
[~2020-03-01 05:12] MED LIST changes: -CEPHALEXIN500 M1 ORAL
[2020-03-01 05:20] VITALS: BP 126/80
[2020-03-01] MEDS ORDERED: Ketorolac 30mg Inj IV ONE (05:45)
[2020-03-01 05:53] LABS: BASOPHILS % (AUTO) 1.7 % (0.0-2.0); EOSINOPHILS % (AUTO) 0.9 % (0.0-3.0); HEMATOCRIT 45.6 % (37.0-47.0); HEMOGLOBIN 14.8 G/DL (12.0-16.0); LYMPHOCYTES % (AUTO) 49.6 % (20.0-45.0); MEAN CORPUSCULAR VOLUME 89 FL (80-99); MONOCYTES % (AUTO) 7.4 % (1.0-10.0); NEUTROPHILS % (AUTO) 40.4 % (45.0-75.0); PLATELET COUNT 317 K/UL (150-450); RED BLOOD COUNT 5.16 M/UL (4.20-5.40); RED CELL DISTRIBUTION WIDTH 12.8 % (11.6-14.8); WHITE BLOOD COUNT 6.8 K/UL (4.8-10.8)
[2020-03-01 05:55] LABS: ANION GAP 13 mmol/L (5-15); BLOOD UREA NITROGEN 10 mg/dL (7-18); CALCIUM 9.1 MG/DL (8.5-10.1); CARBON DIOXIDE 26 MMOL/L (21-32); CHLORIDE 102 MMOL/L (98-107); POTASSIUM 3.3 MMOL/L (3.5-5.1); SODIUM 141 MMOL/L (136-145)
[2020-03-01 05:59] LABS: ALANINE AMINOTRANSFERASE 19 U/L (12-78); ALBUMIN 3.9 G/DL (3.4-5.0); ALBUMIN/GLOBULIN RATIO 0.8 (1.0-2.7); ALKALINE PHOSPHATASE 120 U/L (46-116); ASPARTATE AMINO TRANSFERASE 19 U/L (15-37); BILIRUBIN,TOTAL 0.3 MG/DL (0.2-1.0)
[2020-03-01 05:59] LABS: BILIRUBIN, URINE NEGATIVE (NEGATIVE); GLUCOSE, URINE (UA) NEGATIVE (NEGATIVE); KETONES,URINE 1+ (NEGATIVE); LEUKOCYTE ESTERASE ,URINE 2+ (NEGATIVE); NITRITE,URINE NEGATIVE (NEGATIVE); PH,URINE 5 (4.5-8.0); PROTEIN,URINE 1+ (NEGATIVE); UROBILINOGEN,URINE 1 MG/DL (0.0-1.0)
[2020-03-01] MEDS ORDERED: Morphine Sulfate 4mg/ml Inj (IV USE ONLY) IVP ONE (06:00)
--- NOTE | 2020-03-01 06:00 | Emergency Room Report ---
History of Present Illness General Chief Complaint: Abdominal Pain Present Illness HPI Disclaimer: Please note that this report is being documented using DRAGON technology. This can lead to erroneous entry secondary to incorrect interpretation by the dictating instrument. HPI: 29-year-old female history of recent traumatic injury to the left lower extremity 1 month ago presents for epigastric abdominal pain. She states she was drinking alcohol last night went to bed and then woke up with epigastric abdominal pain 10 out of 10 nonradiating associated nausea and vomiting. She denies any cough or fever. No urinary complaints. Has history of similar pain in the past. She denies any surgical history. Patient currently wearing a walking boot PMH: Fractures of the left lower extremity with chronic wound PSH: Reviewed Social Hx: Patient smokes marijuana, drinks alcohol, denies other drug use Allergies: Coded Allergies: No Known Allergies (Unverified , 08/07/14) COVID-19 Screening Contact w/high risk pt: No Experienced COVID-19 symptoms?: No COVID-19 Testing performed GLASS WASHER: No Patient History Now: No : 3 Para: 2 Reviewed Nursing Documentation: PMH: Agreed; PSxH: Agreed Nursing Documentation-PMH Hx Hypertension: No Hx Pacemaker: No Hx Asthma: Yes Hx COPD: No Hx Diabetes: Yes Hx Cancer: No Hx Gastrointestinal Problems: No - gerd Hx Dialysis: No Hx Cerebrovascular Accident: No Hx Seizures: No Review of Systems All Other Systems: negative except mentioned in HPI Physical Exam Vital Signs Date Time Temp Pulse Resp B/P (MAP) Pulse Ox O2 Delivery O2 Flow Rate FiO2 03/01/20 05:12 98.8 97 22 140/80 (100) 98 Room Air Sp02 EP Interpretation: reviewed, normal General Appearance: well appearing, no apparent distress Head: normocephalic, atraumatic Eyes: bilateral eye PERRL, bilateral eye EOMI ENT: hearing grossly normal, moist mucus membranes Neck: full range of motion, supple Respiratory: lungs clear, normal breath sounds, no rhonchi, no respiratory distress, no retraction, no wheezing Cardiovascular #1: normal peripheral pulses, regular rate, rhythm, no murmur Gastrointestinal: non tender, soft, non-distended, no guarding Neurologic: alert, oriented x3, no focal defects Skin: normal color, warm/dry Medical Decision Making Diagnostic Impression: Primary Impression: Epigastric abdominal pain ER Course MDM: Differential diagnosis included but not limited to gastritis, pancreatitis , gastroenteritis to name a few Clinical course-none IV inserted, laboratory studies are sent, pain control, IV fluids, antiemetics given. Plan-patient signed out to oncoming physician to follow-up on laboratory studies and final disposition. Last Vital Signs Date Time Temp Pulse Resp B/P (MAP) Pulse Ox O2 Delivery O2 Flow Rate FiO2 03/01/20 05:20 98.8 94 22 126/80 98 Room Air Signed Out To: Laith Referrals: [facility],REFERRING (PCP) Jian Anaya M.D. Mar 01, 2020 06:00
[2020-03-01 06:09] LABS: APPEARANCE,URINE SLIGHTLY CLOUDY; COLOR,URINE YELLOW
[2020-03-01] MEDS ORDERED: DiphenhydrAMINE 50mg/ml Inj IVP ONE (06:30)
[2020-03-01] MEDS ORDERED: Haloperidol 5mg/ml Inj IM ONE (06:30)
[2020-03-01 06:31] VITALS: BP 115/76
[2020-03-01] MEDS ORDERED: CEPHALEXIN500 M1 ORAL (08:16)
[2020-03-01 08:25] VITALS: BP 109/68
== END 2020-03-01 08:25 | disposition home or self-care (01) ==
LOC: EDBD 05:12 → EDSEX 05:12 → EMR 05:24
DX: R10.13 Epigastric pain (principal); R11.2 Nausea with vomiting, unspecified; E11.9 Type 2 diabetes mellitus without complications; K21.9 Gastro-esophageal reflux disease without esophagitis; F12.90 Cannabis use, unspecified, uncomplicated
CPT/HCPCS: 36415; 80053; 81003; 81025; 83690; 84702; 85025; 87086; 96361; 96372; 96375; G0480; J1200; J1630; J1885; J2270; J2405; J7030; S0028; Z7502; 99284

== ENCOUNTER 2020-05-30 22:09 | Emergency (ER) | payer OTHER ==
[~2020-05-30] VITALS: Ht 165.1 cm; Wt 108.9 kg
[~2020-05-30 22:09] MED LIST changes: +CEPHALEXIN500 M1 ORAL
--- NOTE | 2020-05-30 22:30 | Emergency Room Report ---
History of Present Illness General Chief Complaint: Female Urogenital Problems Source: Patient Present Illness HPI This is a 29-year-old female who is sexually active. She presents with complaints of vaginal discharge and pelvic pain. Onset for last few days. She says she has unprotected sex with a male partner. She now has yellowish- greenish discharge. Is odorous. Worse with urination. Has pelvic cramping. She has a history of trichomonas in the past. Nothing made it better. Urinating made it worse. Allergies: Coded Allergies: No Known Allergies (Unverified , 08/07/14) COVID-19 Screening Contact w/high risk pt: No Experienced COVID-19 symptoms?: No COVID-19 Testing performed PARLIAMENTARY ARCHIVIST: No Patient History Past Medical History: see triage record, old chart reviewed Past Surgical History: none Pertinent Family History: none Social History: Denies: smoking Last Menstrual Period: IUD Now: No Immunizations: other Reviewed Nursing Documentation: PMH: Agreed; PSxH: Agreed Nursing Documentation-PMH Hx Hypertension: No Hx Pacemaker: No Hx Asthma: Yes Hx COPD: No Hx Diabetes: Yes Hx Cancer: No Hx Gastrointestinal Problems: No - gerd Hx Dialysis: No Hx Cerebrovascular Accident: No Hx Seizures: No Review of Systems Eye: Denies: eye pain, blurred vision ENT: Denies: ear pain, nose congestion, throat swelling Respiratory: Denies: cough, shortness of breath Cardiovascular: Denies: chest pain, palpitations Gastrointestinal: Denies: abdominal pain, diarrhea, nausea, vomiting Genitourinary: Reports: discharge, vag bleed/dc Musculoskeletal: Denies: back pain, joint pain Skin: Denies: rash Neurological: Denies: headache, numbness Endocrine: Denies: increased thirst, increased urine Hematologic/Lymphatic: Denies: easy bruising All Other Systems: negative except mentioned in HPI Physical Exam Vital Signs Date Time Temp Pulse Resp B/P (MAP) Pulse Ox O2 Delivery O2 Flow Rate FiO2 05/30/20 22:15 98.4 87 15 127/64 (85) 99 Room Air Vitals normal Sp02 EP Interpretation: reviewed, normal General Appearance: well appearing, no apparent distress, alert Head: normocephalic, atraumatic Eyes: bilateral eye PERRL, bilateral eye EOMI ENT: hearing grossly normal, normal pharynx Neck: full range of motion, supple, no meningismus Respiratory: chest non-tender, lungs clear, normal breath sounds Cardiovascular #1: regular rate, rhythm, no murmur Gastrointestinal: normal bowel sounds, non tender, no mass, no organomegaly, no bruit, non-distended Genitourinary: other - Pelvic exam done with female nurse kettle fry cook operator. External exam normal. Internal exam showed clear/whitish discharge. No cervical motion tenderness. Musculoskeletal: back normal, normal range of motion, gait/station normal Psychiatric: mood/affect normal Medical Decision Making Diagnostic Impression: Primary Impression: Trichomonal vaginitis ER Course Patient presents with vaginal discharge and has trichomonas. Flagyl given. Will discharge home. Last Vital Signs Date Time Temp Pulse Resp B/P (MAP) Pulse Ox O2 Delivery O2 Flow Rate FiO2 05/30/20 22:15 98.4 87 15 127/64 (85) 99 Room Air Status: improved Disposition: HOME, SELF-CARE Condition: Stable Additional Instructions: Recommend outpatient testing for HIV, hepatitis, syphilis and other STDs. Have your partners treated. Follow-up with your doctor in 7 days. Return if worse. Memo Flores MD May 30, 2020 22:30
--- NOTE | 2020-05-30 22:37 | NUR ---
ED Nurse Note: urine sent to lab
--- NOTE | 2020-05-30 22:37 | NUR ---
ED Nurse Note: wet mount sent to lab
[2020-05-30 22:49] LABS: APPEARANCE,URINE CLEAR; BILIRUBIN, URINE NEGATIVE (NEGATIVE); GLUCOSE, URINE (UA) NEGATIVE (NEGATIVE); KETONES,URINE NEGATIVE (NEGATIVE); LEUKOCYTE ESTERASE ,URINE 2+ (NEGATIVE); NITRITE,URINE NEGATIVE (NEGATIVE); PH,URINE 6 (4.5-8.0); PROTEIN,URINE NEGATIVE (NEGATIVE); UROBILINOGEN,URINE NORMAL MG/DL (0.0-1.0)
[2020-05-30 22:50] VITALS: BP 127/64
--- NOTE | 2020-05-30 22:50 | NUR ---
ED Nurse Note: pt walked into ED from home c/o vaginal discharge, yellow, foul smelling. Pt states she noticied a fishy smell. Pt also started she has been douching this last week.
[2020-05-30 22:51] LABS: COLOR,URINE YELLOW
[2020-05-30] MEDS ORDERED: metroNIDAZOLE 500mg tab ORAL ONE (23:00)
[2020-05-30 23:15] VITALS: BP 118/68
--- NOTE | 2020-05-30 23:15 | NUR ---
ER DISCHARGE NOTE: Patient is cleared to be discharged per ERMD, pt is aox4, on room air, with stable vital signs. pt was given dc instructions, pt was able to verbalize understanding, pt id band removed. pt is able to ambulate with steady gait. pt took all belongings.
== END 2020-05-30 23:15 | disposition home or self-care (01) ==
LOC: EMR 22:33
DX: A59.01 Trichomonal vulvovaginitis (principal); E11.9 Type 2 diabetes mellitus without complications; K21.9 Gastro-esophageal reflux disease without esophagitis; Z97.5 Presence of (intrauterine) contraceptive device
CPT/HCPCS: 81003; 81025; 87210; Z7502; 99283

== ENCOUNTER 2020-06-09 10:31 | Emergency (ER) | payer OTHER ==
[~2020-06-09] VITALS: Ht 167.6 cm; Wt 108.9 kg
[2020-06-09 10:42] VITALS: BP 110/74
--- NOTE | 2020-06-09 11:20 | Emergency Room Report ---
History of Present Illness General Chief Complaint: General Complaint Source: Patient Present Illness HPI Patient states she was seen here previously for abnormal vaginal discharge. She states that she was diagnosed with trichomonas. She states that she did take the Flagyl that she was given here. Her partner who is a female also took the same treatment. She states that she has been unable to get into her primary care physician and so she wanted to make sure that her trichomonas is resolved. She states that her vaginal discharge is clear now. She denies dysuria or hematuria. She also states that she noticed over the past few days a lump in her right i nner thigh. She states that this is where she shaves. She states she is gotten these in the past but this is bigger than usual. She denies fever chills. She states it is tender but is not painful. Denies chest pain or shortness of breath. She denies recent illness. She has no other complaints. Allergies: Coded Allergies: No Known Allergies (Unverified , 08/07/14) COVID-19 Screening Contact w/high risk pt: No Experienced COVID-19 symptoms?: No COVID-19 Testing performed POLICE ARTIST: No Patient History Past Medical History: see triage record, DM, HTN, GERD, other - Hyperthyroid Social History: Denies: smoking, alcohol use, drug use Last Menstrual Period: 06/01/20 Reviewed Nursing Documentation: PMH: Agreed; PSxH: Agreed Nursing Documentation-PMH Past Medical History: No History, Except For Hx Hypertension: No Hx Pacemaker: No Hx Asthma: Yes Hx COPD: No Hx Diabetes: Yes Hx Cancer: No Hx Gastrointestinal Problems: No - gerd Hx Dialysis: No Hx Cerebrovascular Accident: No Hx Seizures: No Review of Systems All Other Systems: negative except mentioned in HPI Physical Exam Vital Signs Date Time Temp Pulse Resp B/P (MAP) Pulse Ox O2 Delivery O2 Flow Rate FiO2 06/09/20 10:37 97.9 90 17 110/74 (86) 98 Room Air Sp02 EP Interpretation: reviewed, normal General Appearance: no apparent distress, alert, GCS 15, non-toxic Head: normocephalic, atraumatic Eyes: bilateral eye normal inspection ENT: hearing grossly normal, no angioedema, normal voice Neck: normal inspection Respiratory: no respiratory distress, no retraction, no accessory muscle use, speaking full sentences Rectal: deferred Musculoskeletal: normal inspection, normal range of motion, gait/station normal, non-tender Neurologic: alert, motor strength/tone normal, oriented x3, sensory intact, responsive, speech normal Psychiatric: judgement/insight normal, memory normal, mood/affect normal, no suicidal/homicidal ideation Skin: other - R. mid inner thigh: nickel sized fluctant lesion with aproximately 1cm of surrounding erythema and warmth circumferentially. Procedures Incision and Drainage Incision and Drainage : Consent: Verbal Site: R. inner thigh I & D Procedure: betadine prep Wound Location: lower extremity Wound's Depth, Shape: superficial Progress A needle aspiration was done with an 18-gauge needle of the abscess on the patient's right inner thigh. I felt that anesthesia with lidocaine would be far more painful than a quick one-time aspiration. Purulent material was obtained. The patient tolerated the procedure without complication or incident. Medical Decision Making Diagnostic Impression: Primary Impression: Abscess ER Course The patient has a small fluctuant abscess on her right inner thigh. There is some surrounding cellulitis. I will go ahead and treat the patient with a course of antibiotics for this. The patient had inquired on resolution of her trichomonas. I instructed the patient that she and her partner were treated with the appropriate antibiotic. It is also reassuring the patient symptoms have resolved. Patient was instructed to follow-up with her primary care physician for proper pelvic exam and for further testing to include HIV and syphilis. Overall, the patient is well-appearing and nontoxic. The patient is given close return precautions and follow-up instructions. Last Vital Signs Date Time Temp Pulse Resp B/P (MAP) Pulse Ox O2 Delivery O2 Flow Rate FiO2 06/09/20 10:42 97.9 17 110/74 98 Room Air 06/09/20 10:42 90 Status: improved Disposition: HOME, SELF-CARE Condition: Improved Jena Hernandez DO Jun 09, 2020 11:20
[2020-06-09] MEDS ORDERED: DOXYCYCLINE MO100 MG ORAL (11:21)
[2020-06-09 11:30] VITALS: BP 112/76
== END 2020-06-09 11:30 | disposition home or self-care (01) ==
LOC: EMR 11:12
DX: L02.415 Cutaneous abscess of right lower limb (principal); J45.909 Unspecified asthma, uncomplicated; E11.9 Type 2 diabetes mellitus without complications
CPT/HCPCS: 10060; Z7502; 99283

== ENCOUNTER 2020-06-27 17:10 | Emergency (ER) | payer OTHER ==
[~2020-06-27] VITALS: Ht 167.6 cm; Wt 108.9 kg
[2020-06-27 17:35] VITALS: BP 103/69
--- NOTE | 2020-06-27 17:35 | NUR ---
ED Nurse Note: Pt walked in to ED c/o sorethroat, runny nose, right earache and bilateral flank pain x1 week. Denies any urinary problem. AAOx4, verbally responsive. No SOB, on room air.
[2020-06-27] MEDS ORDERED: Ketorolac 30mg Inj IM ONE (18:15)
--- NOTE | 2020-06-27 18:18 | Emergency Room Report ---
History of Present Illness General Chief Complaint: Flu Like Symptoms Source: Patient Present Illness HPI 29-year-old female with hx of asthma and DM, presents to the emergency department complaining of 6/10 in severity sore throat, fevers and chills as well as right-sided ear pain x2 days. Patient reports she has been taking Tylenol with no relief. Patient denies cough or wheezing. She does report some nasal congestion. She reports history of diabetes. She denies neck pain/stiffness, headache, photophobia. She denies abdominal pain, nausea or vomiting. She denies changes to her voice. Denies inability to swallow fluids or saliva. No other aggravating or relieving factors at this time. Denies ringing in the ears or loss of hearing. She denies external ear tenderness or ear discharge. Allergies: Coded Allergies: No Known Allergies (Unverified , 08/07/14) COVID-19 Screening Contact w/high risk pt: No Experienced COVID-19 symptoms?: Yes COVID-19 Testing performed ERP IMPLEMENTATION CONSULTANT: No Patient History Past Medical History: see triage record Past Surgical History: none Pertinent Family History: none Last Menstrual Period: 06/01/20 Now: No Reviewed Nursing Documentation: PMH: Agreed; PSxH: Agreed Nursing Documentation-PMH Past Medical History: No History, Except For Hx Hypertension: No Hx Pacemaker: No Hx Asthma: Yes Hx COPD: No Hx Diabetes: Yes - PREDM Hx Cancer: No Hx Gastrointestinal Problems: No Hx Dialysis: No History Of Psychiatric Problem: No Hx Neurological Problems: No Hx Cerebrovascular Accident: No Hx Seizures: No Review of Systems All Other Systems: negative except mentioned in HPI Physical Exam Vital Signs Date Time Temp Pulse Resp B/P (MAP) Pulse Ox O2 Delivery O2 Flow Rate FiO2 06/27/20 17:29 97.9 110 20 103/69 (80) 96 Room Air Sp02 EP Interpretation: reviewed, normal General Appearance: no apparent distress, alert, GCS 15, non-toxic Head: normocephalic, atraumatic Eyes: bilateral eye normal inspection, bilateral eye PERRL ENT: hearing grossly normal, normal voice, TMs + canals normal, uvula midline, tonsillar swelling, pharyngeal erythema Neck: full range of motion, no meningismus, no bony tend Respiratory: chest non-tender, lungs clear, normal breath sounds, no respiratory distress, no accessory muscle use, no wheezing, speaking full sentences Cardiovascular #1: regular rate, rhythm, tachycardia Musculoskeletal: back normal, normal range of motion, gait/station normal, non- tender Neurologic: alert, motor strength/tone normal, oriented x3, sensory intact, r esponsive, speech normal Psychiatric: judgement/insight normal Skin: no rash, normal color Medical Decision Making PA Attestation Dr. Porter is my supervising Physician whom patient management has been discussed with. Diagnostic Impression: Primary Impression: Pharyngitis Qualified Codes: J02.0 - Streptococcal pharyngitis ER Course 29-year-old female with hx of asthma and DM, presents to the emergency department complaining of 6/10 in severity sore throat, fevers and chills as well as right-sided ear pain x2 days. Patient reports she has been taking Tylenol with no relief. Patient denies cough or wheezing. She does report some nasal congestion. She reports history of diabetes. She denies neck pain/stiffness, headache, photophobia. She denies abdominal pain, nausea or vomiting. She denies changes to her voice. Denies inability to swallow fluids or saliva. No other aggravating or relieving factors at this time. Denies ringing in the ears or loss of hearing. She denies external ear tenderness or ear discharge. Ddx considered but are not limited to: pharyngitis, strep, ERP IMPLEMENTATION CONSULTANT, ludwigs angina, URI, PNA just to name a few. Vital signs: Tachycardia, remaining VS are WNL, pt. is afebrile H&PE are most consistent with: pharyngitis presumed strep. --Normal voice, maintaining own airway no stridor. ORDERS: None required at this time as the diagnosis is clinical ED INTERVENTIONS: -Toradol 30mg IM DISCHARGE: At this time pt. is stable for d/c to home. Will provide printed patient care instructions, and any necessary prescriptions. Care plan and follow up instructions have been discussed with the patient prior to discharge. Last Vital Signs Date Time Temp Pulse Resp B/P (MAP) Pulse Ox O2 Delivery O2 Flow Rate FiO2 06/27/20 17:35 110 20 Room Air 06/27/20 17:35 97.9 103/69 96 Disposition: HOME, SELF-CARE Condition: Stable Scripts Lidocaine HCl 2% Viscous (Lidocaine HCl 2% Viscous) 100 Ml Solution 10 ML ORAL QID, #120 ML Prov: Flores Richmond 06/27/20 Ibuprofen* (MOTRIN*) 600 Mg Tablet 600 MG ORAL THREE TIMES A DAY, #20 TAB Prov: Flores Richmond 06/27/20 Guaifenesin (Mucinex) 1,200 Mg Tab.er.12h 1200 MG PO Q12HR for 10 Days, #20 TAB Prov: Flores Richmond 06/27/20 Amoxicillin/Potassium Clav 875-125* (AUGMENTIN 875-125 TABLET*) 1 Each Tablet 1 TAB ORAL TWICE A DAY for 10 Days, #20 TAB Prov: Flores Richmond 06/27/20 Patient Instructions: Strep Throat, Upper Respiratory Infection, Adult Additional Instructions: Take medications as directed. Follow up with a Primary Care Provider in 3-5 days, even if your symptoms have resolved. --Please review list of primary care clinics, if you do not already have a prim [facility] care provider Return sooner to ED if new symptoms occur, or current symptoms become worse. - Please note that this Emergency Department Report was dictated using [employer] reliner technology software, occasionally this can lead to berny eous entry secondary to interpretation by the dictation equipment. Flores Richmond Jun 27, 2020 18:18
[2020-06-27] MEDS ORDERED: AUGMENTIN 875-1 EAC1 ORAL (18:19)
[2020-06-27] MEDS ORDERED: IBUPROFEN600 M1 ORAL (18:19)
[2020-06-27] MEDS ORDERED: MUCINEX1200 MG PO (18:19)
[2020-06-27] MEDS ORDERED: LIDOCAINE VISC100 ML ORAL (18:19)
[2020-06-27 18:37] VITALS: BP 110/74
--- NOTE | 2020-06-27 18:38 | NUR ---
ED Nurse Note: Pt cleared by ERMD for discharge. DC instructions/prescription was given and explained to pt and verbalized understanding of teachings. All medical deviecs such as ID band removed. Pt is AAO x4, ambulatory and left with all personal belongings.
[2020-06-28] MEDS ORDERED: CEPHALEXIN500 MG ORAL (18:03)
[2020-06-28] MEDS ORDERED: AUGMENTIN 875-1 EAC1 ORAL (18:08)
[2020-06-28] MEDS ORDERED: MUCINEX1200 MG PO (18:08)
== END 2020-06-27 18:37 | disposition home or self-care (01) ==
LOC: EMR 18:10
DX: J02.9 Acute pharyngitis, unspecified (principal); R00.0 Tachycardia, unspecified; E11.9 Type 2 diabetes mellitus without complications; J45.909 Unspecified asthma, uncomplicated
CPT/HCPCS: 96372; J1885; Z7502; 99283

== ENCOUNTER 2020-06-28 16:13 | Emergency (ER) | payer OTHER ==
[~2020-06-28] VITALS: Ht 167.6 cm; Wt 108.9 kg
[~2020-06-28 16:13] MED LIST changes: +AUGMENTIN 875-1 EAC1 ORAL; +IBUPROFEN600 M1 ORAL; +LIDOCAINE VISC100 ML ORAL; +MUCINEX1200 MG PO
[2020-06-28] MEDS ORDERED: Azithromycin 250mg tab ORAL ONE (16:30)
[2020-06-28] MEDS ORDERED: Lidocaine 1% MPF 10mg/ml 5ml INJ ONE (16:30)
[2020-06-28] MEDS ORDERED: Fluconazole 150mg tab ORAL ONE (16:30)
[2020-06-28 16:31] VITALS: BP 117/79
[2020-06-28 16:48] LABS: APPEARANCE,URINE CLOUDY; BILIRUBIN, URINE NEGATIVE (NEGATIVE); GLUCOSE, URINE (UA) NEGATIVE (NEGATIVE); KETONES,URINE 1+ (NEGATIVE); LEUKOCYTE ESTERASE ,URINE 2+ (NEGATIVE); NITRITE,URINE NEGATIVE (NEGATIVE); PH,URINE 6 (4.5-8.0); PROTEIN,URINE 1+ (NEGATIVE); UROBILINOGEN,URINE 4 MG/DL (0.0-1.0)
[2020-06-28 16:57] LABS: COLOR,URINE YELLOW
[2020-06-28] MEDS ORDERED: CEPHALEXIN500 MG ORAL (18:03)
--- NOTE | 2020-06-28 18:03 | Emergency Room Report ---
History of Present Illness General Chief Complaint: Vaginal Source: Patient Present Illness HPI 29-year-old female with no signal past medical history here complaining of 3 days of vaginal discharge. Patient reports that she was diagnosed with trichomoniasis here over a month ago. Patient has not been sexually active with anyone after she was diagnosed with trichomoniasis. Patient is requesting a bed now. Patient is aware that we do not routinely test for sexually transmitted diseases here and we are for treatment and she accepts treatment for chlamydia and gonorrhea. Patient reports" I want to get to the bottom of this, I know why I have intermittent vaginal discharge." Patient denies any frequency urination, nausea vomiting, fever or chills. Also patient was given incorrect medication yesterday in terms of lisinopril not correctly and is requesting the same prescription.. Patient was seen here at [facility] for pharyngitis 1 day ago. Allergies: Coded Allergies: No Known Allergies (Unverified , 08/07/14) COVID-19 Screening Contact w/high risk pt: No Experienced COVID-19 symptoms?: No COVID-19 Testing performed BEEF SPLITTER: No Patient History Past Medical History: see triage record Past Surgical History: none Pertinent Family History: none Last Menstrual Period: jun 01, 2020 Now: No Immunizations: UTD Reviewed Nursing Documentation: PMH: Agreed; PSxH: Agreed Nursing Documentation-PMH Past Medical History: No History, Except For Hx Hypertension: No Hx Pacemaker: No Hx Asthma: Yes Hx COPD: No Hx Diabetes: Yes - PREDM Hx Cancer: No Hx Gastrointestinal Problems: No Hx Dialysis: No Hx Neurological Problems: No Hx Cerebrovascular Accident: No Hx Seizures: No Review of Systems All Other Systems: negative except mentioned in HPI Physical Exam Vital Signs Date Time Temp Pulse Resp B/P (MAP) Pulse Ox O2 Delivery O2 Flow Rate FiO2 06/28/20 16:22 98.1 82 19 117/79 (92) 96 Room Air Sp02 EP Interpretation: reviewed, normal General Appearance: no apparent distress, alert, GCS 15, non-toxic Head: normocephalic, atraumatic Eyes: bilateral eye normal inspection, bilateral eye PERRL ENT: hearing grossly normal, normal pharynx, no angioedema, normal voice Neck: full range of motion, supple/symm/no masses Respiratory: chest non-tender, lungs clear, normal breath sounds, speaking full sentences Cardiovascular #1: regular rate, rhythm, no edema Gastrointestinal: soft, no mass Rectal: deferred Genitourinary: no CVA tenderness Musculoskeletal: back normal Neurologic: alert, motor strength/tone normal, oriented x3, sensory intact, responsive, speech normal Psychiatric: judgement/insight normal, memory normal, mood/affect normal, no suicidal/homicidal ideation Skin: no rash Lymphatic: no adenopathy Medical Decision Making PA Attestation All my diagnosis and treatment plans were reviewed ad discussed with my supervising physician Dr. Hernandez Diagnostic Impression: Primary Impression: UTI (urinary tract infection) Additional Impression: Vaginal discharge ER Course 29-year-old female with no signal past medical history here complaining of 3 days of vaginal discharge. Patient reports that she was diagnosed with tr ichomoniasis here over a month ago. Patient has not been sexually active with anyone after she was diagnosed with trichomoniasis. Patient is requesting a bed now. Patient is aware that we do not routinely test for sexually transmitted diseases here and we are for treatment and she accepts treatment for chlamydia and gonorrhea. Patient reports" I want to get to the bottom of this, I know why I have intermittent vaginal discharge." Patient denies any frequency urination, nausea vomiting, fever or chills. Also patient was given incorrect medication yesterday in terms of lisinopril not correctly and is requesting the same prescription.. Patient was seen here at [facility] for pharyngitis 1 day ago. Ddx considered but are not limited to: vaginitis, yeast infection, BV, chlamydia, Gohnorrea, syphylis, HIV, herpes 1 or 2, UTI Vital signs: are WNL, pt. is afebrile H&PE are most consistent with : UTI, vaginal DC ORDERS: UA, urince cx, wet mount, urine test, ED INTERVENTIONS: Diflucan, Rocephin IM, azithromycin Reprinted the prescription for Augmentin and both medicine was prescribed patient history 1. Augmentin will cover both UTI symptoms as well as pharyngitis. Also present with urine Z-Vu in theED today DISCHARGE: At this time pt. is stable for d/c to home. Will provide printed patient care instructions, and any necessary prescriptions. Care plan and follow up instructions have been discussed with the patient prior to discharge. Patient was evaluated in the context of the global COVID-19 pandemic, which necessitated consideration that the patient might be at risk for infection with the SARS-COV-2 virus that causes COVID-19. Institutional protocols and algorithms that pertain to the evaluation of patients at risk for COVID-19 are in a state of rapid change based on information relieved by multiple regulatory bodies including the CDC and the federal and state organizations. These policies and algorithms were followed during the patient's care in the ED. Last Vital Signs Date Time Temp Pulse Resp B/P (MAP) Pulse Ox O2 Delivery O2 Flow Rate FiO2 06/28/20 16:31 98.1 19 117/79 96 Room Air 06/28/20 16:22 82 Disposition: HOME, SELF-CARE Condition: Stable Scripts Guaifenesin (Mucinex) 1,200 Mg Tab.er.12h 1200 MG PO Q12HR for 10 Days, #20 TAB Prov: Germaine Durand 06/28/20 Amoxicillin/Potassium Clav 875-125* (AUGMENTIN 875-125 TABLET*) 1 Each Tablet 1 TAB ORAL TWICE A DAY for 10 Days, #20 TAB Prov: Germaine Durand 06/28/20 Referrals: [facility] (PCP) Patient Instructions: Urinary Tract Infection, [id number], Vaginitis Additional Instructions: Take medication as directed, follow primary care provider, if worsening symptoms return to the emergency room also follow-up with press puller. Germaine Durand Jun 28, 2020 18:03
[2020-06-28] MEDS ORDERED: AUGMENTIN 875-1 EAC1 ORAL (18:08)
[2020-06-28] MEDS ORDERED: MUCINEX1200 MG PO (18:08)
[2020-06-28 18:20] VITALS: BP 117/79
== END 2020-06-28 18:20 | disposition home or self-care (01) ==
LOC: EMR 16:46
DX: N39.0 Urinary tract infection, site not specified (principal); N89.8 Other specified noninflammatory disorders of vagina; R73.03 Prediabetes
CPT/HCPCS: 81003; 81025; 87086; 87210; 96372; 99283